=== PATIENT | male | born 1985 | race American Indian/Alaskan Native ===

== ENCOUNTER 2018-12-04 13:20 | Emergency (ER) | payer MEDICAID ==
[2018-12-04 13:36] VITALS: BMI 23.7
[2018-12-04 13:41] VITALS: RESP 18; TEMP 98.7
--- NOTE | 2018-12-04 14:04 | ED PDOC ---
Arrival/HPI - General Historian: Patient - History of Present Illness Narrative History of Present Illness (Text): 12/04/18 13:50 Donny Liu is a 33 year old male, with a past medical history of hyperthyroidism, sent to the ED by Dr. Singh for evaluation of left lower extremity swelling and cellulitis since today. Patient informs of leakage and pus to affected area this morning. Patient also notes diaphoresis and tingling sensation in feet. Patient denies any difficulty ambulating. Patient also denies boils, bug bites, ulcers, or shaving area. Patient states discontinuing use of thyroid medications since 2 years. Requests bloodwork and evaluation of thyroid levels per Dr. Singh. Patient denies history of current complaints. Patient denies fevers, chest pain, palpitations, shortness of breath, cough, abdominal pain, nausea, vomiting, diarrhea, dysuria, hematuria, black / bloody stools, or any other complaints. Time/Duration: 4-6 hours Symptom Onset: Sudden Symptom Course: Unchanged Activities at Onset: Light Past Medical History - Provider Review Nursing Documentation Reviewed: Yes Primary Care Provider: Joanie Singh - Cardiac Hx Cardiac Disorders: Yes Hx Hypertension: Yes - Pulmonary Hx Respiratory Disorders: No - Neurological Hx Neurological Disorder: No - Endocrine/Metabolic Hx Endocrine Disorders: Yes Hx Hyperthyroidism: Yes - Psychiatric Hx Substance Use: No Family/Social History - Physician Review Nursing Documentation Reviewed: Yes Family/Social History: Unknown Family HX Smoking Status: Heavy Smoker > 10 Cigarettes Daily Hx Alcohol Use: Yes Frequency of alcohol use: Socially Hx Substance Use: No Allergies/Home Meds Allergies/Adverse Reactions: Allergies No Known Allergies Allergy (Verified 12/04/18 13:31) Home Medications: Home Meds Medication Instructions Recorded Confirmed hydroCHLOROthiazide [Hydrodiuril] 25 mg PO DAILY 12/04/18 12/04/18 methIMAzole [Tapazole] 5 mg PO DAILY 12/04/18 12/04/18 Review of Systems - Physician Review All systems were reviewed & negative as marked: Yes - Review of Systems Constitutional: absent: Fevers, Other (chills) Respiratory: absent: SOB, Cough Cardiovascular: absent: Chest Pain, Palpitations Gastrointestinal: absent: Abdominal Pain, Diarrhea, Nausea, Vomiting, Hematochezia, Other (melena) Genitourinary Male: absent: Dysuria, Hematuria Musculoskeletal: Other (left lower extremity swelling) Skin: Cellulitis (left lower extremity, appreciated leakage and pus this morning). absent: Skin Lesions (no bug bites), Abscess, Ulcer, Other (shaving to area) Physical Exam Vital Signs Reviewed: Yes Vital Signs Temp Pulse Resp BP Pulse Ox 12/04/18 13:40 98.7 F 76 18 150/96 H 99 Temperature: Afebrile Blood Pressure: Normal Pulse: Regular Respiratory Rate: Normal Appearance: Positive for: Well-Appearing, Non-Toxic, Comfortable Pain Distress: None Mental Status: Positive for: Alert and Oriented X 3 - Systems Exam Head: Present: Atraumatic, Normocephalic Pupils: Present: PERRL Extroacular Muscles: Present: EOMI Conjunctiva: Present: Normal Mouth: Present: Moist Mucous Membranes Neck: Present: Normal Range of Motion Respiratory/Chest: Present: Clear to Auscultation, Good Air Exchange. No: Respiratory Distress, Accessory Muscle Use, Wheezes, Rales, Rhonchi Cardiovascular: Present: Regular Rate and Rhythm, Normal S1, S2. No: Murmurs, Rub, Gallop Abdomen: Present: Normal Bowel Sounds. No: Tenderness, Distention, Peritoneal Signs, Rebound, Guarding Back: Present: Normal Inspection Upper Extremity: Present: Normal Inspection. No: Cyanosis, Edema Lower Extremity: Present: NORMAL PULSES (+2 DP and PT pulses of left lower extremity). No: Edema, CALF TENDERNESS Neurological: Present: GCS=15, CN II-XII Intact, Speech Normal Skin: Present: Warm, Dry, Normal Color, Induration (non purulent induration to left medial calf area). No: Rashes Psychiatric: Present: Alert, Oriented x 3, Normal Insight, Normal Concentration Medical Decision Making ED Course and Treatment: 12/04/18 13:50 Impression: Patient is a 33 year old male, with a past medical history of hyperthyroidism, who presents to the emergency department complaining of left lower extremity swelling and cellulitis since this morning. Plan: -- Labs -- Keflex -- US Duplex Left Lower Extremity Vein -- Reassess and disposition Prior Visits: Notes and results from previous visits were reviewed. Patient was last seen in the emergency department on [facility] Notes: 12/04/18 16:10 Labs show no evidence of leukocytosis and no derangement in thyroid function studies. US Doppler shows negative DVT studies. Imaging and lab results shared with patient who demonstrates understanding and will follow up with his PCP. Keflex ordered and given as scripts for patient to take once discharged. Opportunity for questions given and answered. He is stable for discharge. - Lab Interpretations Lab Results: 12/04/18 13:55 12/04/18 13:55 Lab Results 12/04/18 13:55: Free T4 0.86, TSH 3rd Generation 1.10 12/04/18 13:55: Sodium 138, Potassium 4.0, Chloride 103, Carbon Dioxide 29, Anion Gap 11, BUN 15, Creatinine 0.9, Est GFR ( Amer) > 60, Est GFR (Non- Af Amer) > 60, Random Glucose 89, Calcium 9.1, Total Bilirubin 1.0, AST 31, ALT 13, Alkaline Phosphatase 68, Total Creatine Kinase 327 H, CK-MB (CK-2) 1.2, CK- MB (CK-2) % Cancelled, Total Protein 7.5, Albumin 4.3, Globulin 3.2, Albumin/Globulin Ratio 1.4 12/04/18 13:55: WBC 6.6, RBC 4.48, Hgb 14.5, Hct 43.3, MCV 96.7, MCH 32.4, MCHC 33.5, RDW 13.0, Plt Count 241, MPV 9.7, Neut % (Auto) 69.6 H, Lymph % (Auto) 20.7 L, [place] % (Auto) 7.2 H, Eos % (Auto) 1.7, Baso % (Auto) 0.8, Lymph # (Auto) 1.4, [place] # (Auto) 0.5, Eos # (Auto) 0.1, Baso # (Auto) 0.05, Absolute Neuts (auto) 4.58 I have reviewed the lab results: Yes - RAD Interpretation Radiology Orders: 12/04/18 13:47 DUPLEX LOWER EXT ART LT LMTD [US] Stat - Scribe Statement The provider has reviewed the documentation as recorded by the Scribe Rik Forte All medical record entries made by the Scribe were at my direction and personally dictated by me. I have reviewed the chart and agree that the record accurately reflects my personal performance of the history, physical exam, medical decision making, and the department course for this patient. I have also personally directed, reviewed, and agree with the discharge instructions and disposition. Disposition/Present on Arrival - Present on Arrival Any Indicators Present on Arrival: No History of DVT/PE: No History of Uncontrolled Diabetes: No Urinary Catheter: No History of Decub. Ulcer: No History Surgical Site Infection Following: None - Disposition Have Diagnosis and Disposition been Completed?: Yes Diagnosis: Cellulitis Disposition: HOME/ ROUTINE Disposition Time: 16:14 Patient Plan: Discharge Condition: STABLE Discharge Instructions (ExitCare): Cellulitis (ED), Cellulitis (Skin Infection), Adult (DC) Print Language: TURKMEN Additional Instructions: All medical record entries made by the Scribe were at my direction and personally dictated by me. I have reviewed the chart and agree that the record accurately reflects my personal performance of the history, physical exam, medical decision making, and the department course for this patient. I have also personally directed, reviewed, and agree with the discharge instructions and disposition. Please follow up with your PCP in 1 week Take medications as prescribed Apply warm compresses to your leg every 4 hours and take Motrin every 6 hours for pain Prescriptions: Cephalexin [cephalexin] 500 mg PO Q12H 10 Days #20 cap Referrals: Joanie Singh MD [Primary Care Provider] - Follow up with primary Forms: [employer] (Azeri)
[2018-12-04 14:13] LABS: BASO # 0.05 K/mm3 (0.0-2.0); BASO % 0.8 % (0.0-3.0); EOS # 0.1 (0.0-0.7); EOS % 1.7 % (1.5-5.0); HEMOGLOBIN 14.5 g/dL (14.0-18.0); LYMPH # 1.4 (1.2-3.4); LYMPH % 20.7 % (22.0-35.0); MEAN CELL VOLUME 96.7 fl (80.0-105.0); MEAN CORPUSCULAR HEMOGLOBIN 32.4 pg (25.0-35.0); MEAN CORPUSCULAR HGB CONC 33.5 g/dl (31.0-37.0); MEAN PLATELET VOLUME 9.7 fl (7.0-11.0); MONO # 0.5 (0.1-0.6); MONO % 7.2 % (1.0-6.0); RBC 4.48 10^6/uL (3.5-6.1); WHITE BLOOD COUNT 6.6 10^3/uL (4.5-11.0)
[2018-12-04 14:24] LABS: ALB/GLOB RATIO 1.4 (1.1-1.8); ALBUMIN 4.3 g/dL (3.0-4.8); ALT/SGPT 13 U/L (7-56); AST/SGOT 31 U/L (17-59); BLOOD UREA NITROGEN 15 mg/dL (7-21); CALCIUM 9.1 mg/dL (8.4-10.5); GFR NON-AFRICAN AMERICAN > 60
[2018-12-04 14:40] LABS: FREE T4 0.86 ng/dL (0.78-2.19)
[2018-12-04 14:49] LABS: CK-MB 1.2 ng/mL (0.0-3.6)
[2018-12-04 16:01] VITALS: BP 133/83; PULSE 67; O2SAT 100
--- NOTE | 2018-12-06 13:36 | US ---
PROCEDURE: Left lower extremity venous US HISTORY: Leg pain and swelling. Evaluate for DVT. PHYSICIAN(S): Iban Pineda MD. TECHNIQUE: Duplex sonography and color-flow Doppler with graded compression were used to evaluate the deep venous system of the left lower extremity. FINDINGS: The visualized deep venous system of the left lower extremity is sonographically normal and compressible. Normal wave forms and augmentation are seen. There is no sonographic evidence for deep venous thrombosis in the visualized segments of the left lower extremity. IMPRESSION: 1. No sonographic evidence for deep venous thrombosis in the visualized segments of the left lower extremity.
== END 2018-12-04 16:23 | disposition home or self-care (01) ==
LOC: ED 13:20
DX: L03.116 Cellulitis of left lower limb (principal); I10 Essential (primary) hypertension; E05.90 Thyrotoxicosis, unspecified without thyrotoxic crisis or storm; F17.210 Nicotine dependence, cigarettes, uncomplicated